=== PATIENT | male | born 1975 | race African-American/Black ===

== ENCOUNTER 2020-04-09 10:41 | Observation (INO) ==
[2020-04-09] MEDS ORDERED: DIPH/TET/ACEL PERT BOOSTER VACCINE 0.5 ML VIAL IM ONE (11:01)
[2020-04-09] MEDS ORDERED: LACTATED RINGERS 1,000 ML IV STA (11:01)
[2020-04-09 11:22] LABS: Basophils % 0.3 % (0.0-0.8); Eosinophils # 0.2 10*3/uL (0.0-0.87); Eosinophils % 1.3 % (0.00-10.9); Hematocrit 39.4 VOL% (42.0-52.0); Hemoglobin 13.5 GM/DL (14.0-18.0); Immature Granulocytes % 0.8 %; Immature Granulocytes Absolute 0.09 #; Lymphocytes # 2.2 10*3/uL (1.4-4.0); Lymphocytes % 19.2 % (21.2-54.2); Mean Corpuscular HGB Conc 34.3 GM/DL (32-36); Mean Corpuscular Volume 82.9 FL (87-102); Mean Platelet Volume 10.1 FL (9.6-12.0); Monocytes % 7.1 % (1.7-12.7); Neutrophils % 71.3 % (38.7-73.9); Platelet Count 229 T/CUMM (130-400); Red Blood Count 4.75 MC/CUMM (3.8-5.5); Red Cell Distribution Width 14.5 % (9.3-17.3); White Blood Count 11.5 T/CUMM (4-12)
[2020-04-09 11:32] LABS: PT Patient Result 10.4 SECS (9.8-11.9)
[2020-04-09 11:42] LABS: Alanine Aminotransferase 53 U/L (16-61); Alkaline Phosphatase 58 U/L (45-117); Aspartate Amino Transferase 26 U/L (0-37); Bilirubin,Total < 0.39 MG/DL (0.2-1.0); Blood Urea Nitrogen 9 MG/DL (7-18); Calcium 9.1 MG/DL (8.5-10.1); Estimated Glom Filtration Rate 131 ML/MIN; Glucose 106 MG/DL (74-106); Osmolality,Calculated 277.4 MOS/KG (273-304); Total Protein 7.8 G/DL (6.4-8.3)
[2020-04-09] MEDS ORDERED: GLUCAGON 1 MG VIAL IM PRN (12:38)
[2020-04-09] MEDS ORDERED: ONDANSETRON 4 MG/2 ML VIAL IV PRN (12:38)
[2020-04-09] MEDS ORDERED: DEXTROSE 50% 25 GM/50 ML VIAL IV PRN (12:38)
[2020-04-09] MEDS ORDERED: ACETAMINOPHEN 325 MG TABLET PO PRN (12:38)
[2020-04-09 12:39] LABS: Barbiturates Screen,Urine Negative (Negative); Benzodiazepines Screen,Urine Negative (Negative); Bilirubin,Urine Negative (Negative); Blood, Urine Negative (Negative); Cannabinoid Screen,Urine Positive (Negative); Glucose,Urine (UA) Negative (Negative); Ketones,Urine Negative (Negative); Mucus,Urine Occasional /LPF (Occasional); Nitrite,Urine Negative (Negative); Opiate Screen,Urine Negative (Negative); Phencyclidine Screen,Urine Negative (Negative); Protein,Urine Negative; RBC,Urine 3 /HPF (0-4); Sperm,Urine Occasional /HPF (Negative); Squamous Epithelial Cell,Urine Occasional /HPF (0-10); Urine Appearance CLEAR (Clear); Urine Color Yellow (Yellow); Urine Urobilinogen < 2.0 EU/DL (0.2-1.0); WBC,Urine 2 /HPF (0-6)
[2020-04-09] MEDS ORDERED: MORPHINE 4 MG/1 ML VIAL IV PRN (18:11)
[2020-04-10 06:02] LABS: Basophils % 0.3 % (0.0-0.8); Eosinophils # 0.1 10*3/uL (0.0-0.87); Eosinophils % 1.4 % (0.00-10.9); Hematocrit 37.3 VOL% (42.0-52.0); Hemoglobin 12.7 GM/DL (14.0-18.0); Immature Granulocytes % 0.4 %; Immature Granulocytes Absolute 0.04 #; Lymphocytes # 2.3 10*3/uL (1.4-4.0); Lymphocytes % 24.5 % (21.2-54.2); Mean Corpuscular Volume 82.5 FL (87-102); Mean Platelet Volume 10.7 FL (9.6-12.0); Monocytes % 9.7 % (1.7-12.7); Neutrophils % 63.7 % (38.7-73.9); Platelet Count 212 T/CUMM (130-400); Red Blood Count 4.52 MC/CUMM (3.8-5.5); Red Cell Distribution Width 14.2 % (9.3-17.3); White Blood Count 9.2 T/CUMM (4-12)
[2020-04-10 06:21] LABS: Calcium 9.1 MG/DL (8.5-10.1); Osmolality,Calculated 275.5 MOS/KG (273-304)
[2020-04-10 06:29] LABS: Hypochromasia 1+; Platelet Estimate Adequate
[2020-04-10] MEDS ORDERED: ceFAZolin 2,000 MG in PREMIX 1 EACH IV ONE (07:30)
[2020-04-10] MEDS: PANTOPRAZOLE 40 MG TABLET PO SCH (09:00)
[2020-04-10] MEDS ORDERED: TISSUE ADHESIVE 1 EACH APPLICATOR TOP ONE (10:28)
[2020-04-10] MEDS ORDERED: LIDOCAINE 1%/EPI INJ 20 ML VIAL ONE (10:28)
[2020-04-10] MEDS ORDERED: BACITRACIN OINT 0.9 GM PACK TOP ONE (14:11)
[2020-04-10] MEDS ORDERED: LIDOCAINE 2% 5 ML VIAL ONE (14:35)
[2020-04-10] MEDS ORDERED: SEVOFLURANE 1 UNIT/15 MINUTE INH ONE (14:35)
[2020-04-10] MEDS ORDERED: fentaNYL 100 MCG/2 ML VIAL ONE (14:35)
[2020-04-10] MEDS ORDERED: propofoL 200 MG/20 ML VIAL IV ONE (14:35)
[2020-04-10] MEDS ORDERED: ROCURONIUM 100 MG/10 ML VIAL IV ONE (14:36)
[2020-04-10] MEDS ORDERED: SUCCINYLCHOLINE 200 MG/10 ML VIAL ONE (14:36)
[2020-04-10] MEDS ORDERED: MIDAZOLAM 2 MG/2 ML VIAL ONE (14:36)
[2020-04-10] MEDS: ceFAZolin 2,000 MG in PREMIX 1 EACH IV SCH (21:22)
[2020-04-11 06:01] LABS: Basophils % 0.2 % (0.0-0.8); Eosinophils % 0.1 % (0.00-10.9); Hematocrit 36.2 VOL% (42.0-52.0); Hemoglobin 12.5 GM/DL (14.0-18.0); Immature Granulocytes % 0.4 %; Immature Granulocytes Absolute 0.04 #; Lymphocytes % 18.1 % (21.2-54.2); Mean Corpuscular HGB Conc 34.5 GM/DL (32-36); Mean Corpuscular Volume 81.3 FL (87-102); Mean Platelet Volume 10.6 FL (9.6-12.0); Monocytes % 11.9 % (1.7-12.7); Neutrophils % 69.3 % (38.7-73.9); Platelet Count 201 T/CUMM (130-400); Red Blood Count 4.45 MC/CUMM (3.8-5.5); White Blood Count 10.9 T/CUMM (4-12)
[2020-04-11 06:20] LABS: Calcium 8.7 MG/DL (8.5-10.1); Osmolality,Calculated 272.7 MOS/KG (273-304)
[2020-04-11] MEDS: ceFAZolin 2,000 MG in PREMIX 1 EACH IV SCH (06:30)
[2020-04-11] MEDS: PANTOPRAZOLE 40 MG TABLET PO SCH (09:23)
[2020-04-11 15:43] VITALS: BP 149/81
== END 2020-04-11 16:07 | disposition home or self-care (01) ==
LOC: N.ED 10:41 → N.EDINP 10:41 → SUATTDRO 12:38 → N.3E 13:00
PROVIDERS: ADMIT Internal Medicine; ATTEND Surgery